=== PATIENT | male | born 1965 | race Caucasian/White ===

== ENCOUNTER 2016-11-23 07:57 | Day surgery (SDC) | payer OTHER ==
[2016-11-22 17:35] VITALS: Ht 182.9 cm; Wt 73.2 kg
[~2016-11-23] VITALS: Ht 182.9 cm; Wt 73.2 kg
[2016-11-23] VITALS (11 sets, daily range): BP systolic 105–118; BP diastolic 62–98; PULSE 50–88; RESP 16–18
[~2016-11-23 07:57] MED LIST: LACTATED RINGER'S 1,000 ML IV SCH; PROPOFOL 200 MG INJ ONE
[2016-11-23] MEDS ORDERED: CEFAZOLIN 1 GM/50 ML (PMX) 50 ML IVPB SCH (09:17)
[2016-11-23] MEDS ORDERED: FLUT1BLS INHALATION (09:47)
[2016-11-23] MEDS ORDERED: DEXAMETHASONE 4 MG/ML 1 ML INJ ONE (10:00)
[2016-11-23] MEDS ORDERED: BUPIVACAINE 0.5% (SDV) 30 ML INJ ONE (10:00)
--- NOTE | 2016-11-23 10:10 | HPN ---
Date/Time of Note Date/Time of Note DATE: 11/23/16 TIME: 10:09 Interval H&P Admission Note Pt. seen H&P reviewed: No system changes JONAH CALLEJAS DPM Nov 23, 2016 10:10
[2016-11-23] MEDS ORDERED: FENTAnyl 50 MCG/ML VIAL ONE ×2 (10:14→11:07)
[2016-11-23] MEDS ORDERED: MIDAZOLAM 1 MG/ML 2 ML INJ ONE (10:14)
[2016-11-23] MEDS ORDERED: PROPOFOL 20 ML ONE (10:14)
[2016-11-23] MEDS ORDERED: LIDOCAINE 2% (SDV) 5 ML INJ ONE (10:15)
[2016-11-23] MEDS ORDERED: HYDROCODONE/APAP (10/325) TAB PO PRN (10:30)
[2016-11-23] MEDS ORDERED: ONDANSETRON (ODT) 4 MG TAB ODT PRN (10:30)
[2016-11-23] MEDS ORDERED: VANCOMYCIN 1 GM (PMX) 250 ML ONE (10:43)
[2016-11-23] MEDS ORDERED: ALBUTEROL 0.083% (NEB) 2.5 MG/3 ML AMP ONE (10:45)
[2016-11-23] MEDS ORDERED: VANCOMYCIN 500MG/NS (PMX) 100 ML IVPB SCH (11:00)
[2016-11-23] MEDS ORDERED: HYDROmorphONE (0.2 MG/ML) 10ML SYG IV PRN (11:00)
[2016-11-23] MEDS ORDERED: KETOROLAC 30 MG INJ IV SCH (11:00)
[2016-11-23] MEDS ORDERED: VANCOMYCIN 1 GM (PMX) 250 ML IVPB SCH (11:00)
[2016-11-23] MEDS ORDERED: ONDANSETRON 4 MG INJ IV PRN (11:00)
[2016-11-23] MEDS ORDERED: ONDANSETRON 4 MG INJ ONE (11:26)
--- NOTE | 2016-11-23 13:30 | RADRPT ---
PROCEDURE: Right foot series. CLINICAL INDICATION: Postop TECHNIQUE: 3 views of the right foot are available for review. COMPARISON: None available FINDINGS: The the patient is status post osteotomy and fusion of the first distal metatarsal consistent with b unionectomy . There are also surgical changes of the third digit consistent with phalanx effusion a nd likely resection of the middle phalanx. Hardware appears intact. Mineralization and alignment o f the other bones are within normal limits. There are degenerative change of the first metatarsal p halangeal joint. Remainder of joint spaces are grossly within normal limits. IMPRESSION: 1. Postoperative changes of the right foot with intact hardware. 2. Degenerative changes of the first metatarsal phalangeal joint. RPTAT: KK .Matt Hawk MD, Date Time Electronically viewed and signed by .Matt Hawk MD, on 11/23/2016 13:29 .B/
--- NOTE | 2016-11-26 10:40 | OPR ---
DATE OF OPERATION: 11/23/2016 PREOPERATIVE DIAGNOSIS: Right foot painful bunion deformity and third painful hammertoe deformity, right foot. POSTOPERATIVE DIAGNOSIS: Right foot painful bunion deformity and third painful hammertoe deformity, right foot. OPERATION PERFORMED: SURGEON: Miki Cuellar DPM ANESTHESIA: MAC with local. DESCRIPTION OF PROCEDURE: The patient was brought into the OR and approximately 10 mL of 0.5 percent plain Marcaine was used circumferentially around the first metatarsophalangeal joint region, as well as the third metatarsophalangeal joint region. After anesthesia was achieved, the area was prepped and draped in the usual sterile fashion. A tourniquet was applied around the ankle. The foot and ankle were exsanguinated and the tourniquet was inflated to approximately 250 mmHg. Attention was then directed to the dorsal medial aspect of the first metatarsal on the right foot. An approximately 5 cm incision was performed with a number 15 blade. Sharp and blunt dissection were achieved. Care was taken to retract the saphenous nerve and any nervous tissue in the region. Deeper dissection demonstrated arthritic changes dorsally as well as exostoses, and also medially exostoses. The capsular tissue was reflected. Utilizing a sagittal saw, the bunion deformity was removed. In addition, the dorsal aspect of the first metatarsal was debrided. A reciprocating rasp was utilized to smooth any of the sharp edges around the area. The joint space was inspected and other than the exostoses and the overgrowth noted, the joint space was in good repair and cartilage appeared to be fine. Attention was then directed medially where a sagittal saw was utilized to perform a modified chevron osteotomy to decompress the joint and to realign the joint space. The capital fragment was removed laterally and impacted on the remaining stalk. Utilizing the [employer] screw fixation system, a K wire was used to anchor the capital fragment on the remaining stalk. A second K wire was utilized, driven dorsal to plantar and perpendicular to the osteotomy site. The area was countersunk, overdrilled and measured. It was determined a 3.0, number 14 cannulated screw would be utilized. The screw was driven from dorsal to plantar and excellent alignment and approximation was noted. There was a slight gapping noted on the plantar and medial aspect, and this was packed with DBM. Prior to the DBM being utilized, the area was copiously lavaged with antibiotic solution. There was excellent motion of the first metatarsophalangeal joint region. There was no encumbrances on the joint. The area was then coapted with a 2-0 Vicryl suture and the subcutaneous tissue with 3-0 Vicryl suture. It also should be noted that Actishield Amniotic Barrier Membrane was utilized over the capital tissue to reduce inflammation and increase healing. The skin was then coapted with a 4-0 nylon suture. Attention was then redirected to the third toe where a dorsal incision was made with a number 15 blade approximately 2 cm. The incision was made over the proximal interphalangeal joint area. Sharp and blunt dissection were achieved. Collateral ligaments were cut utilizing the number 15 blade as well as extensor tendon was cut and reflected. There was bony exostosis on both the base of the medial phalanx as well as the head of the proximal phalanx. Approximately 2-3 mm of the head of the proximal phalanx was removed in total, 1 mm of the base of the middle phalanx was removed in total. The area was then copiously lavaged with antibiotic solution. Utilizing a 0.05 K wire it was driven distally out the end of the toe and then retrograded back to increase the alignment of the third toe. There was a small gapping element noted and DBM was once again used in this area. The K wire was then bent and capped. The tendon was then coapted with 3-0 and 2-0 Vicryl suture, and the skin was coapted with nylon suture. The area was then injected with 10 mL of 0.5 percent plain Marcaine circumferentially around the third metatarsophalangeal joint, as well as the first metatarsophalangeal joint. A dressing of Xeroform, 4 x 4 and rolled gauze was then utilized. Coban was also utilized. The tourniquet was released and normal refill noted to all the digits of the right foot. The patient tolerated the procedure well and left the OR in stable condition. Dictated By: Miki Cuellar DPM /rishi/[email or web address] /Document#: [id number]
== END 2016-11-23 14:42 | disposition home or self-care (01) ==
LOC: SDS 07:57
PROVIDERS: ATTEND Podiatrist Foot & Ankle Surgery
DX: M21.611 Bunion of right foot (principal); M20.41 Other hammer toe(s) (acquired), right foot
CPT/HCPCS: 28285; 28296; 73630; 88304; 88311; C1713; J2250; J2405; J3010; J3370; Z7512; Z7610; J1100

== ENCOUNTER 2017-05-28 14:08 | Day surgery (SDC) | END 2017-05-28 20:15 | disposition home or self-care (01) ==